=== PATIENT | male | born 1975 | race Caucasian/White ===

== ENCOUNTER 2019-06-23 07:41 | Day surgery (SDC) | payer BC, OTHER ==
[~2019-06-23] VITALS: Ht 177.8 cm; Wt 83.5 kg
[~2019-06-23 07:41] MED LIST: METOPROLOL TART50 MG PO
[2019-06-23 08:29] LABS: HEMATOCRIT 41.6 % (42.0-54.0); HEMOGLOBIN 14.1 g/dL (13.5-17.5); MCH 30.7 pg (26.0-34.0); MCHC 33.9 g/dL (31.0-37.0); MCV 90.4 fL (80.0-100.0); MEAN PLATELET VOLUME 11.1 fL (7.4-10.4); RBC 4.6 10x6/uL (4.20-6.10); RDW 12.2 % (11.5-14.5); WBC 8.5 10x3/uL (4.8-10.8)
[2019-06-23 09:39] VITALS: BP 127/80; Ht 177.8 cm; Wt 83.5 kg
--- NOTE | 2019-06-23 13:47 | NUR ---
1337-REC'D FROM SURGERY. AWAKE AND ALERT,VSS,DENIES PAIN. REVIEWED DISCHARGE CRITERIA. CL IN EASY REACH. TOLERATING ICE WATER
--- NOTE | 2019-06-23 13:48 | NUR ---
1342-FULL LIQUID TRAY TO ROOM
--- NOTE | 2019-06-23 14:43 | NUR ---
1425-TOLERATED TRAY. VSS.DENIES PAIN. REMOVED IV FROM LEFT HAND WITH CATH INTACT,DISPOSED INTO SHARPS.COVERED SITE WITH GUAZE,SECURED WITH MEDIPORE TAPE. REVIEWED POST OPERATIVE INSTRUCTIONS AND FOLLOW UP APPOINTMENT. VERBALIZED UNDERSTANDING. AWAITING FOR TO ARRIVE TO TRANSPORT HOME
--- NOTE | 2019-06-23 14:45 | NUR ---
1435-ESCORTED OUT VIA W/C WITH AWAITING TO DRIVE HOME. DISCHARGE PAPERWORK IN HAND
--- NOTE | 2019-06-23 18:04 | OP ---
PATIENT NAME: DAVID PATEL MEDICAL RECORD: [id number] :[id number] LOCATION:D.OPS ADMISSION DATE: SURGEON: FADI BROCK MD DATE OF OPERATION: 06/23/2019 SURGEON: Fadi Brock MD ANESTHESIA: General anesthesia by Hamida Can CRNA. DIAGNOSIS: Male sterilization. PROCEDURE: Bilateral vasectomy. SPECIMENS: Left vas, right vas deferens. ESTIMATED BLOOD LOSS: None. CLINICAL HISTORY: This is a 43-year-old male, who has several children. He wishes to have a vasectomy performed. He is otherwise in good health. He is not allergic to any medications. He was given Ancef tanning solution maker to the OR. DESCRIPTION OF PROCEDURE: The patient was given induction of general anesthesia in supine position. He was then shaved, prepped, and draped. The left vas deferens was palpated and towel clips were placed proximal and distal along the length of the vas deferens. The intervening skin was infiltrated with 1% lidocaine with epinephrine. An incision was made on this segment of skin between the 2 towel clips. The vas deferens was then isolated out using a hemostat. The tunics were stripped off using the Bovie. The vas deferens was then clamped proximally and distally with hemostats. The intervening segment was excised using a #15 blade. This segment was sent to pathology for diagnosis. The vasal ends were then cauterized. 4-0 Prolene ties were used to tie the vasal ends. Once hemostasis was secure, the tissues were placed back in the hemiscrotum. The hemiscrotal skin was closed using simple interrupted 4-0 Monocryl sutures. The identical procedure was repeated on the right side. At the end of the procedure, fluffs and mesh panties were given to the patient. I will see the patient back in followup in 1 month's time to check on wound healing and at that time, we can also refer him to get a postvasectomy semen analysis. TRANSINT:[id number] Voice Confirmation ID: [id number] DOCUMENT ID: [id number] FADI BROCK MD at 1804 CC: [id number] DICTATION DATE: 06/23/19 1310 CEMETERY COUNSELOR: 06/23/19 1746 [facility] 06/23/19 [facility] [address] [place] [address]
== END 2019-06-23 14:35 | disposition home or self-care (01) ==
LOC: D.OPS 07:41 → D.PAN 10:00 → D.OPS 10:15 → D.PAN 10:30 → D.OPS 10:50 → D.PAN 10:50 → D.OPS 11:00 → D.PAN 11:00 → D.OPS 14:35
PROVIDERS: Anesthesiology; ATTEND Urology
DX: Z30.2 Encounter for sterilization (principal); I10 Essential (primary) hypertension